=== PATIENT | male | born 1945 | race Caucasian/White ===

== ENCOUNTER 2016-07-17 09:19 | Inpatient (IN) | payer MEDICARE, BC ==
--- NOTE | ~2016-07-17 | CN ---
Consultation Report [facility] [address] [place]. [address] NAME: KELLI MARSHALL : 47 STATUS : ADM IN PAT#: [id number] AGE: 71 ADM/REG DATE : 07/17/16 MR#: [id number] REPORT SERV DATE: 07/18/16 DICTATED BY: DATE: REPORT STATUS : Draft TRANSCRIBED BY: MODL DATE: 07/18/16 NEUROLOGY CONSULTATION DATE OF CONSULTATION: 07/18/2016 REASON FOR CONSULT: Encephalopathy. HISTORY OF PRESENT ILLNESS: This is a 71-year-old male who presented to [facility] secondary to recurrent encephalopathy with the patient's family reports recurrent symptoms over the past [id number] weeks with the patient having had recent multiple hospital admissions in [place] and was diagnosed with stroke by MRI and neurologist. The patient's family reports the patient was noted to have recurrent episodes of encephalopathy, consist of confusion and disorientation as well as difficulty remembering names and phone numbers with episodes lasting several hours to several days. The patient otherwise was not observed to have any jerking episodes or focal weakness. No dysarthria. Also the patient reports chronic dry eyes as well as dry mouth with dry mouth being ongoing for the past two years and dry eyes for the past year. The patient reports secondary to dry mouth, the patient has had difficulty swallowing as well as difficulty talking. In addition family reports, the patient was noted to have slow gait with the patient was noted to have a flexed knee when the patient was ambulating and has sustained 2 falls recently with the patient appeared to have some knee discomfort, pain as well as may be some muscle pain with ambulation. The patient has recently had a trip down to [place] through [place] and has had multiple hospitalizations in [place] for intermittent episodic confusion. The patient and family otherwise denies any changes in medication and no other illness, fever, chills, nausea, vomiting, chest pain, or shortness of breath. PAST MEDICAL HISTORY: The patient's past medical history is significant for COPD with chronic respiratory failure on 3L of oxygen. Significant atrial fibrillation on Eliquis, history of type 2 diabetes as well as hypertension, hyperlipidemia, anxiety disorder, peripheral neuropathy, degenerative joint disease, osteoarthritis, and dry eyes and dry mouth for the past one-to-two years. The patient in addition was recently diagnosed with stroke secondary to recurrent confusion as well as problem talking and disorientation. SOCIAL HISTORY: Denies tobacco, alcohol, or recreational drug usage. The patient quit tobacco smoking in 1988. ALLERGIES: THE PATIENT REPORTS ALLERGY TO CIPROFLOXACIN WELL VENOM. HOME MEDICATIONS: The patient's home medications consist of Xanax p.r.n.; Eliquis; Artificial Tears; aspirin; Lipitor; Symbicort; Bentyl; diltiazem; Neurontin; Lopid; glucosamine; Cozaar; Glucophage; Reglan; Singulair; Centrum; Zantac; Flomax; Spiriva; Xopenex inhaler; Actos; and omega-3. REVIEW OF SYSTEMS: Consultation Report [place] [id number] [place]. [address] NAME: KELLI MARSHALL : 47 STATUS : ADM IN [facility]#: [id number] AGE: 71 ADM/REG DATE : 07/17/16 MR#: [id number] REPORT SERV DATE: 07/18/16 DICTATED BY: DATE: REPORT STATUS : Draft TRANSCRIBED BY: MODL DATE: 07/18/16 Negative except for those mentioned in the HPI. FAMILY HISTORY: Significant for heart disease. PHYSICAL EXAMINATION: VITAL SIGNS: At the time of evaluation, the patient was noted to have overnight vital signs with T-max of 98.8, heart rate of 74 to 103, respirations of 16 to 22, and blood pressure of 109 to 139 over 54 to 77. GENERAL: The patient is well developed, well nourished, in no acute distress. CARDIOVASCULAR: Regular rate and rhythm. No carotid bruits were otherwise auscultated. PULMONARY: Examination was clear to auscultation bilaterally. NEUROLOGICAL: Generally, the patient is alert and oriented to person, place, year, and month. Follows simple and 2-step commands. No aphasia was otherwise appreciated but dysarthria was noted at the time of evaluation. Intact registration but he is only able to recall 1/3 items. The patient was noted to have pupils equal, round, and reactive to light. Extraocular eye movement was noted to be intact with intact peripheral vision. Symmetrical facial expression and sensation. Midline tongue. Normal palatal movement. Normal hearing. The patient was noted to have 5/5 bilateral upper extremity strength with mild postural tremor. No myoclonus or asterixis was otherwise noted. No baseline myoclonus was seen. No jerking episodes were seen. The patient demonstrated 5/5 bilateral lower extremity strength at the time of evaluation. Mild increased rigidity throughout deep tendon reflex was 3+ in bilateral upper extremity 1+ in bilateral patella. Downgoing toe on bilateral plantar reflexes. Normal [id number] examination without ataxia with the patient demonstrates stable station and normal gait. The patient was noted to have symmetrical sensation in bilateral upper extremity; mild decreased sensation in bilateral lower extremity. LABORATORY STUDIES: Demonstrated white blood cell count of 11.2, hemoglobin of 12.7, hematocrit of 38.6, and platelet count of 315. INR of 1.5. Chemistry panel: Procalcitonin of less than 0.05, sodium of 142, potassium 4.4, chloride of 105, bicarb of 28, BUN of 12, creatinine of 0.89, glucose of 233, calcium of 9.1, and magnesium of 1.7. Serum ammonia level was 17. The patient was noted to have folate level of 14.5. Vitamin B12 of 413. TSH of 2.02. Free T4 of 1.14. At the time of evaluation, CT scan of the brain otherwise demonstrated no acute process with the patient noted to have MRI of the brain demonstrating no acute stroke. IMPRESSION: 1. Encephalopathy. The patient was noted to have intermittent confusion with apparent frequent hospitalization and was diagnosed with stroke reportedly by MRI as well as neurologist. The patient, in addition, was also noted to have longstanding dry eyes and dry mouth. We will check sedimentation rate, CRP, VANESSA, SSA SSB antibody as well as rheumatoid factor with morning labs. We will check EEG. May consider lumbar puncture for evaluation. MRI of the brain otherwise demonstrated no acute events. RECOMMENDATIONS: Consultation Report [place] [id number] [facility] [place]. [address] NAME: KELLI MARSHALL : 47 STATUS : ADM IN [facility]#: [id number] AGE: 71 ADM/REG DATE : 07/17/16 MR#: [id number] REPORT SERV DATE: 07/18/16 DICTATED BY: DATE: REPORT STATUS : Draft TRANSCRIBED BY: MODL DATE: 07/18/16 1. Continue Eliquis for now. 2. Sedimentation rate, CRP, VANESSA, SSA-SB antibody, CPK level with morning labs. 3. EEG for evaluation. 4. May consider lumbar puncture. [facility]/MODL Augustin Silva MD / [id number] CC: Alvin Shoemaker M.D.
--- NOTE | ~2016-07-17 | EEG ---
Electroencephalogram [facility] [address] [place]. [address] NAME: KELLI MARSHALL : 47 STATUS : ADM IN PAT#: [id number] AGE: 71 ADM/REG DATE : 07/17/16 MR#: [id number] REPORT SERV DATE: 07/19/16 DICTATED BY: DATE: REPORT STATUS : Draft TRANSCRIBED BY: MODL DATE: 07/19/16 CLINICAL INDICATION: Encephalopathy. DESCRIPTION: This EEG was performed using 10/20 electrode placement system. During the EEG study, symmetric background activity was noted with predominant occipital rhythm of roughly 10 to 11 hertz. Photic stimulation was performed with appropriate driving response. Hyperventilation was not performed secondary to the patient's underlying medical conditions. During the EEG study, patient achieved drowsy state. No focal abnormalities, seizure activity, or seizure discharge was otherwise noted. The patient was noted to have no electrographic seizure during the EEG evaluation. INTERPRETATION: This EEG study obtained during awake and drowsy state may be considered within normal limits. No focal abnormalities, seizure activity, or seizure discharge was otherwise noted. Clinical correlation is recommended. [facility]/MODL Augustin Silva MD / [id number] CC: Neha Saleem M.D.
--- NOTE | ~2016-07-17 | HP ---
History And Physical [place] [address] [place]. [address] NAME: KELLI MARSHALL : [birth year] STATUS : ADM IN [facility]#: [id number] AGE: 71 ADM/REG DATE : 07/17/16 MR#: [id number] REPORT SERV DATE: 07/17/16 DICTATED BY: DEDE BUTLER DATE: 07/17/16 REPORT STATUS : Draft TRANSCRIBED BY: MODFrankie DATE: 07/17/16 DATE OF ADMISSION: 07/17/2016 CHIEF COMPLAINT: Increasing shortness of breath, whitish productive sputum, wheezes for one day, as well as dysarthria and confusion on and off since the last stroke. HISTORY OF PRESENT ILLNESS: This is a very pleasant 71 years old gentleman. He does have an extensive medical history significant for paroxysmal atrial fibrillation. He is a diabetic, severe COPD with chronic respiratory failure on 3 L of oxygen per nasal cannula, history of hypertension, hyperlipidemia, BPH, anxiety disorder, peripheral neuropathy. Recently, he went to [place] in the [facility], where he, according to the patient and , wanted to purchase a house and there he has been admitted x2 at [facility], discharged on and last on for what looks to be two strokes. He received, according to the records, tPA in the emergency room on the second admission, and he has been discharged in home, where he was supposed to come home and get physical therapy as an outpatient. Obviously, the patient since his second stroke, according to the and the patient, remained somewhat dysarthric and confused at times with episodes of confusion on and off. The patient's family brought him and they drove with frequent stops from [place]. They brought the patient and they arrived home at 2 o'clock in the morning. They fell asleep and this morning around 7:30 or 8 o'clock in the morning, the patient's found her that he was laying on his knees on the floor on the side. He did not fall, but according to the patient's , may be he was more dysarthric than usual and he was confused. The patient does not remember the episodes nor does he remember that he came in ambulance, however, according to the patient, his confusion slowly improved while he was in the emergency room, and currently, he is alert and oriented x3, and according to the patient's , dysarthria is at baseline. It is important to note that also for one day he has had some wheezes and whitish productive cough, but no chest pain, no PND or orthopnea. He denies any presyncopal or syncopal episodes. It is important to note that according to the patient's , he has had progressive deterioration of his functional status, and according to the patient and , he has been remaining somewhat unsteady, but no falls since the prior strokes. The patient has been evaluated in the emergency room and the hospitalist service has been asked for admission, further evaluation, and treatment. PAST MEDICAL HISTORY: Significant for atrial fibrillation, COPD with chronic respiratory failure on 3 L of oxygen, recent strokes x2, diabetes type 2, history of paroxysmal atrial fibrillation, hypertension, hyperlipidemia, BPH, also anxiety disorder, peripheral neuropathy, GERD, degenerative joint disease, osteoarthritis. PAST SURGICAL HISTORY: Include bilateral total knee replacement, hernia repair, and left elbow surgery for a burst bursa, left shoulder surgery, and back surgery. SOCIAL HISTORY: The patient denies smoking, he quit in 1988. No alcohol. No IV drugs. ALLERGIES: HE IS ALLERGIC TO CIPRO AND VENOM. MEDICATIONS: At home include Xanax, Eliquis, Artificial Tears, aspirin, Lipitor, Symbicort, History And Physical [address] [address] NAME: KELLI MARSHALL : [birth year] STATUS : ADM IN [facility]#: [id number] AGE: 71 ADM/REG DATE : 07/17/16 MR#: [id number] REPORT SERV DATE: 07/17/16 DICTATED BY: DEDE BUTLER DATE: 07/17/16 REPORT STATUS : Draft TRANSCRIBED BY: MODL DATE: 07/17/16 Bentyl, Cardizem, Neurontin, Lopid, Osteo Bi-Flex, losartan, Glucophage, Reglan, Singulair, multivitamin, Zantac, Flomax, Spiriva, Xopenex, Actos, and omega-3 fatty acid. FAMILY HISTORY: Significant for heart disease and black lung. REVIEW OF SYSTEMS: 14-point review of systems has been obtained and pertinent positives have been listed into the history of present illness. Otherwise, negative except those underlying above. PHYSICAL EXAMINATION: VITAL SIGNS: The patient currently is afebrile. Blood pressure is 125/56, heart rate 76, respiratory rate 22, saturating 96% on oxygen. GENERAL: He is a chronically ill-appearing gentleman, somewhat dysarthric, in no acute distress. Currently, he is alert and oriented x3. He follows all commands appropriately, but he does have some confusion at times. HEENT: Pupils equal, round, reactive to light. Extraocular movements intact. NECK: No JVD. No lymphadenopathy. No thyromegaly appreciated. CHEST: Bilateral air entry. Bilateral wheezes and scattered rhonchi. No crackles. CARDIOVASCULAR: He is irregularly irregular. S1, S2 positive. No S3, no S4. No murmurs, rubs, or gallops appreciated. ABDOMEN: Soft with positive bowel sounds. No tender or guarding or rebound. EXTREMITIES: No clubbing, cyanosis, or edema. NEUROLOGIC: Currently, he is alert and oriented x3. He follows all commands. He has had dysarthria. Cranial nerves are intact. LABORATORY DATA: Labs from today include ABG 7.31, 58, and 64 on 21% FiO2. So labs from today include sodium 144, potassium 3.4, chloride 105, CO2 of 31, BUN 15, creatinine 1.04, glucose is 101. Total bilirubin 0.2, alkaline phosphatase 101, ALT 16, AST 8. His white count is 8.5, hemoglobin 13, hematocrit 39.2, and platelets 309. His UA has been negative. EKG shows atrial fibrillation. His chest x-ray, portable, has shown no acute cardiopulmonary abnormalities. His CT of the brain without contrast showed no acute intracranial abnormality, chronic microvascular white ischemic changes. ASSESSMENT AND PLAN: This is a very pleasant 71 years old gentleman with, 1. Chronic obstructive pulmonary disease exacerbation. 2. Acute on chronic respiratory failure. 3. Dysarthria with intermittent confusion and recent cerebrovascular accident. 4. History of paroxysmal atrial fibrillation, on anticoagulation. 5. Diabetes type 2, noninsulin dependent. 6. Hypertension. 7. History of BPH. 8. History of peripheral neuropathy. 9. Hyperlipidemia. 10.Peripheral neuropathy. PLAN: 1. The patient is going to be admitted to hospitalist service regarding his COPD History And Physical [address] [address] NAME: KELLI MARSHALL : 47 STATUS : ADM IN PAT#: [id number] AGE: 71 ADM/REG DATE : 07/17/16 MR#: [id number] REPORT SERV DATE: 07/17/16 DICTATED BY: DEDE BUTLER DATE: 07/17/16 REPORT STATUS : Draft TRANSCRIBED BY: MODFrankie DATE: 07/17/16 exacerbation. Keep him on oxygen to keep sats 90%-92%. Also IV steroids. We will start him on doxycycline. Aggressive nebulizer treatment. Continue his Symbicort, Mucinex. Check sputum Gram stain and cultures as well, and follow up his chest x-ray. Aggressive pulmonary toilet as well. 2. Dysarthria with intermittent confusion and severe weakness since prior CVA. We are going to continue his aspirin and Eliquis, order an MRI of the brain, and consult Neurology, Dr. Silva, per patient and family request. We will request all the medical records from the [facility] recent hospitalization. Get a PT/OT eval and treat as well. Probably, the patient will need inpatient rehab at discharge. 3. History of paroxysmal atrial fibrillation. We are going to continue his Cardizem, continue his Eliquis. Check cardiac enzymes as well as 2D echo. 4. Diabetes type 2, noninsulin dependent. We will hold his Glucophage. Accu-Cheks before meals and at bedtime, sliding scale insulin subcutaneously level 2. 5. Hyperlipidemia. We will continue his lipid-lowering agent. 6. Peripheral neuropathy. Continue Neurontin and hold for sedation. 7. Anxiety disorder, p.r.n. Xanax that patient has been on. 8. Provide reasonable pain, nausea control. Replace all his electrolytes as well as GI and DVT prophylaxis with SCDs since the patient is currently on Eliquis as well. Further workup and recommendation pending above. That has been discussed extensively with the patient as well as the patient's . All the questions have been answered in full. It is worthwhile to note that the patient is going to be followed by Dr. Alvin Shoemaker. CF/TOMASL Dede Butler M.D. / [id number]
--- NOTE | ~2016-07-17 | DS ---
Discharge Summary [facility] [address] [place]. [address] NAME: KELLI MARSHALL : 47 STATUS : DIS IN PAT#: [id number] AGE: 71 ADM/REG DATE : 07/17/16 MR#: [id number] REPORT SERV DATE: 07/20/16 DICTATED BY: XENA SHOEMAKER DATE: 07/19/16 REPORT STATUS : Draft TRANSCRIBED BY: MODL DATE: 07/19/16 ADMISSION DATE: 07/17/2016 DISCHARGE DATE: 07/19/2016 CONSULTANTS: Dr. Silva, Neurology. DISCHARGE DIAGNOSES: 1. Multiple episodes of encephalopathy, unclear etiology (see discussion below). 2. Paroxysmal atrial fibrillation, on anticoagulation with Eliquis. 3. Diabetes mellitus type 2 with peripheral neuropathy and A1c of 6.8%. 4. Chronic obstructive pulmonary disease on home oxygen 3 L chronically. 5. Possible obstructive sleep apnea. 6. Hypertension. 7. Benign prostatic hypertrophy by history. 8. History of anxiety. 9. Chronic complaint of dry mouth in a gentleman who is taking Bentyl t.i.d. chronically. HISTORY: This gentleman and his state that they were in the [facility] recently and he was taken to the emergency room twice and admitted. When I asked the why he was taken to the hospital the first time, she states it was because "he had weak eyes and garbled speech, and did not make sense." He was there for a few days. She believes he was diagnosed with a stroke and was released. She took him back a subsequent time for admission and I asked her why, she stated he was "confused and rambling." Her understanding is he was diagnosed with a stroke again. She thinks he might have been given tPA during one of these times, but she is not certain. She states he was at [facility]. We requested records but have not received them. brought him in here to our emergency room and when I asked her why, she stated that they had left from the [place], [place] area on Tuesday day, drove all the way home, lot of traffic through [place], got home about 0200 hours on 07/17/2016. She says they went to bed. She got up around 0630 hours. She found him sitting on the floor and again, he seemed confused, had some garbled speech. He could not seem to understand what she was telling him. She could not understand what he was telling her. She brought him to the emergency room, and he was referred to our team for inpatient care. Imaging included CT scan of the brain without contrast that showed chronic microvascular ischemic changes and atherosclerotic changes but no acute abnormalities. MRI of the brain revealed no evidence of acute abnormality. There was no evidence of recent stroke. There was some atrophy and chronic white matter changes. Chest x-ray unremarkable. Echocardiogram with ejection fraction 60%. Left atrium enlarged at 4.3 cm. The patient's arterial blood gas on room air, pH 7.31, pCO2 of 58, PO2 of 64, bicarbonate 28.2, but he and state he normally wears 3 L oxygen. When he is on 3 liters, his O2 sats have been 92- 98% consistently. His chemistries revealed no significant abnormality other than his blood sugar ranging anywhere from 101-233 on the vena puncture testing. His albumin slightly low at 3.1 but otherwise his liver enzymes were unremarkable. His troponins were normal. TSH normal. Urine drug screen negative. C-reactive protein 6.7, ESR 36. Rheumatoid factor Discharge Summary [address] [address] NAME: KELLI MARSHALL : 47 STATUS : DIS IN PAT#: [id number] AGE: 71 ADM/REG DATE : 07/17/16 MR#: [id number] REPORT SERV DATE: 07/20/16 DICTATED BY: XENA SHOEMAKER DATE: 07/19/16 REPORT STATUS : Draft TRANSCRIBED BY: JUAN DATE: 07/19/16 less than 10. Ammonia level 17. White count was initially 8.5. The followup day it was 11.2. He was afebrile and the ER had given him Solu-Medrol so that probably accounts for the bump in the white count. Hemoglobin ranged between 12.7 and 13. Platelets were normal. He is on Eliquis. Urinalysis unremarkable. The patient when I met him on 07/18/2016 was oriented. He was very talkative. He seemed to be very focused on his chronic dry mouth and attributing all of his other problems to the chronic dry mouth and review of his medicines. It looks like he was taking Bentyl 20 mg t.i.d. routinely which could certainly cause dry mouth. So, I stopped this. His dry mouth seems to be better in the short term. Neurology saw him. They did recommend a lumbar puncture which would require him to be off Eliquis. He does not want to stay and do that in the hospital. He wants to follow up with Neurology as an outpatient to do this. We did order an HIV as part of the dementia and encephalopathy screening. It was nonreactive. RPR has been ordered and is pending at this time. EEG was done. It was normal. He is alert. He is oriented. He has no focal neurologic deficits. He has had no speech problems during the time that he has been here. He has had no confusion during this time here. We are not certain as to the cause of his intermittent encephalopathies. It is possible that he has some underlying dementia that is having some deterioration at times. His PCP will follow this up longitudinally and we have also asked him to see [facility] in the followup. DISCHARGE MEDICATIONS: Eliquis 5 mg b.i.d., aspirin 81 mg daily, Lipitor 40 mg at bedtime, Tiazac extended release 360 mg daily, gabapentin 600 mg t.i.d., Lopid 600 mg b.i.d., Cozaar 50 mg daily, Reglan which he reportedly takes before every meal at bedtime but it is not exactly clear why, Singulair 10 mg daily, Flomax 0.4 mg daily, Symbicort 80/4.5 two puffs twice a day. Xanax he reportedly was taking 1 mg twice a day plus p.r.n. doses. We recommended that the supervise that and that he only have it twice a day p.r.n. Artificial Tears p.r.n. Spiriva one capsule inhaled daily. We stopped his Bentyl for the above described reason. Metformin 500 mg b.i.d. (A1c 6.8%). Osteo Bi-Flex caplet twice a day. Xopenex. He uses p.r.n. and he thinks he might be on Actos, but he is not sure. So PCP to follow that up. He takes a Centrum vitamin, omega-3, and some Zantac 150 mg p.o. b.i.d. I spent 42 minutes today with the patient and with his and with discharge planning. EULALIA/JUAN Xena Shoemaker M.D. / [id number] Discharge Summary [address] [address] NAME: KELLI MARSHALL ALEXANDRU : 47 STATUS : DIS IN PAT#: [id number] AGE: 71 ADM/REG DATE : 07/17/16 MR#: [id number] REPORT SERV DATE: 07/20/16 DICTATED BY: XENA SHOEMAKER DATE: 07/19/16 REPORT STATUS : Draft TRANSCRIBED BY: JUAN DATE: 07/19/16 CC: Neha Saleem M.D. Gordon Graham, M.D. Pamela Sud, M.D.
[~2016-07-17 09:19] MED LIST: ACTOS15 PO; ACTOS45 PO; ALBUTEROL PO; AMARYL4 PO; ASAB PO; C5 PO; CARDCD240 PO; CEFT5 PO; COZ25 PO; COZ50 PO; FESO4 PO; FLOMAX4 PO; GLUCCHONDR PO; GLUCPH PO; HALF81 PO; LOPID6 PO; MULTIPLE VIT PO; NEUR300 PO; NEUR600 PO; OSTEO BIFLEX PO; PCET PO; REG PO; SPIRIVA INH; SYMBICORT 160/41 INH INH; T PO; XANAX1 MG PO; XANAX2 MG PO; XOPENEX HFA INH; ZANTAC 150 PO; ZOCOR20 PO; ZOCOR40 PO
[2016-07-17 10:17] LABS: BE (BASE EXCESS) 0.7 MEQ/L (0 +/- 2.5); CARBOXYHEMOGLOBIN 1.4 % (0-3); HCO3 (ACTUAL BICARBONATE) 28.2 MEQ/L (23-27); HEMOBLOGIN CONTENT 13.5 G/DL (14-18); INSTRUMENT SERIAL # 8087; METHEMOGLOBIN 0.3 % (0-3); O2 CONTENT 16.7 VOL% (18-24); PCO2 (CO2 TENSION) 58 MMHG (35-45); PO2 (O2 TENSION) 64 MMHG (79-93); SAMPLE Arterial; pH 7.31 (7.37-7.43)
[2016-07-17 10:18] LABS: ALLENS TEST Pos
[2016-07-17 10:22] LABS: BASOPHILS 0.4 %; BASOPHILS ABSOLUTE 0.03 10/3/uL (0.0-0.16); EOSINOPHILS 5.3 %; EOSINOPHILS ABSOLUTE 0.45 10/3/uL (0.0-0.53); ER CBC TAT 0 Hrs 05 Mins; IMMATURE GRANULOCYTES 0.2 %; IMMATURE GRANULOCYTES ABSOLUTE 0.02 10/3/uL (0.0-0.11); LYMPHOCYTES 18.5 %; LYMPHOCYTES ABSOLUTE 1.57 10/3/uL (0.67-4.30); MEAN CORPUS HGB CONC 33.2 g/dL (32.0-36.0); MEAN CORPUSCULAR HEMOGLOB 30.4 pg (26.0-34.0); MEAN CORPUSCULAR VOLUME 91.6 fL (80-100); MEAN PLATELET VOLUME 8.6 fL (9.2-13.0); MONOCYTES 11.6 %; MONOCYTES ABSOLUTE 0.99 10/3/uL (0.21-1.20); NEUTROPHILS ABSOLUTE 5.44 10/3/uL (2.02-8.40); PLATELET COUNT 309 10/3/uL (150-400); RBC DISTRIBUTION WIDTH 12.7 % (12.0-16.0); RED CELL COUNT 4.28 10/6/uL (4.7-6.1); WHITE BLOOD CELLS 8.5 10/3/uL (4.5-10.5)
[2016-07-17 10:23] LABS: HEMATOCRIT 39.2 % (40.0-51.0); MANUAL DIFF NO %
[2016-07-17 10:39] LABS: A/G RATIO 0.8 (0.7-1.9); ALBUMIN 3.3 G/DL (3.5-5.0); ALKALINE PHOSPHATASE 101 U/L (45-117); BUN (BLOOD UREA NITROGEN) 15 MG/DL (6-23); CHLORIDE, SERUM 105 MMOL/L (96-112); CO2 (CARBON DIOXIDE) 31 MMOL/L (24-34); CREATININE 1.04 MG/DL (0.70-1.30); GFR AFRICAN AMERICAN 84 ML/MIN (>=60); GFR NON AFRICAN AMERICAN 72 ML/MIN (>=60); GLOBULIN 4.1 G/DL (2.5-4.1); GLUCOSE, SERUM 101 MG/DL (60-99); POTASSIUM, SERUM 3.4 MMOL/L (3.5-5.3); SGOT(AST) 8 U/L (5-40); SGPT(ALT) 16 U/L (5-65); SODIUM, SERUM 144 MMOL/L (135-148); TOTAL BILIRUBIN 0.2 MG/DL (0-1.2); TOTAL PROTEIN 7.4 G/DL (6.0-8.5)
[2016-07-17 13:41] LABS: ASCORBIC ACID (UR NOT ORDER) NEG (NEG); BILIRUBIN, URINE NEGATIVE (NEG); ER URINALYSIS TAT 0 Hrs 20 Mins; KETONE, URINE NEGATIVE (NEG); LEUKOCYTE ESTERASE(NOT OR NEG (NEG); NITRITE (URINE) NEG (NEG); WBC (NOT ORDERED) (RFLEX) 1 (0-5)
[2016-07-17] MEDS ORDERED: ELIQUIS 5 MG TAB5 MG PO (15:05)
[2016-07-17] MEDS ORDERED: GLUCPH PO (15:06)
[2016-07-17] MEDS ORDERED: XANAX1 MG PO ×2 (15:07→15:08)
[2016-07-17] MEDS ORDERED: ASAB PO (15:08)
[2016-07-17] MEDS ORDERED: LIPITOR40 PO (15:09)
[2016-07-17] MEDS ORDERED: SYMBICORT 80/4.1 INH INH (15:09)
[2016-07-17] MEDS ORDERED: SPIRIVA INH (15:10)
[2016-07-17] MEDS ORDERED: BENTYL20 PO (15:10)
[2016-07-17] MEDS ORDERED: NEUR600 PO (15:11)
[2016-07-17] MEDS ORDERED: LOPID6 PO (15:11)
[2016-07-17] MEDS ORDERED: TAZTIA X3 PO (15:11)
[2016-07-17] MEDS ORDERED: OSTEO BI-FLEX1 EACH PO (15:12)
[2016-07-17] MEDS ORDERED: XOPENEX PO (15:13)
[2016-07-17] MEDS ORDERED: COZ50 PO (15:15)
[2016-07-17] MEDS ORDERED: SINGULAIR1 PO (15:16)
[2016-07-17] MEDS ORDERED: REG PO (15:16)
[2016-07-17] MEDS ORDERED: ACTOS (15:18)
[2016-07-17] MEDS ORDERED: FLOMAX4 PO (15:19)
[2016-07-17] MEDS ORDERED: CENTRUM PO (15:21)
[2016-07-17] MEDS ORDERED: OMEGA-3 PO (15:22)
[2016-07-17] MEDS ORDERED: ZANTAC150 MG PO (15:22)
[2016-07-17] MEDS ORDERED: HYPOTEARS OPH (15:24)
[2016-07-17 20:16] LABS: INTERNATIONAL NORMAL RATI 1.3 UNITS (-); PARTIAL THROMBO TIME 30.7 SEC (22.5-37.2); PROTIME (NOT ORD) 16.2 SEC (12.0-14.5)
[2016-07-17 20:47] LABS: FERRITIN 141 NG/ML (26-388); FREE T4 1.14 NG/DL (0.76-1.46); IRON BINDING CAPACITY 308 MCG/DL (250-450); IRON, SERUM 48 MCG/DL (35-150); PHOSPHORUS, SERUM 2.5 MG/DL (2.5-4.5); TROPONIN I <0.02 NG/ML (<0.05)
[2016-07-17 20:50] LABS: FOLATE 14.5 NG/ML (>5.2); PROCALCITONIN <0.05 ng/mL (<0.5)
[2016-07-17 20:51] LABS: ACETAMINOPHEN LEVEL (TYLENOL) < 2.0 MCG/ML (10.0-20.0); ALCOHOL < 10 MG/DL (0); SALICYLATE < 1.7 MG/DL (-)
[2016-07-18 03:53] LABS: BASOPHILS 0.2 %; BASOPHILS ABSOLUTE 0.02 10/3/uL (0.0-0.16); EOSINOPHILS 0.4 %; EOSINOPHILS ABSOLUTE 0.05 10/3/uL (0.0-0.53); HEMATOCRIT 38.6 % (40.0-51.0); HEMOGLOBIN 12.7 g/dL (13.6-17.8); IMMATURE GRANULOCYTES 0.4 %; IMMATURE GRANULOCYTES ABSOLUTE 0.04 10/3/uL (0.0-0.11); LYMPHOCYTES ABSOLUTE 0.45 10/3/uL (0.67-4.30); MEAN CORPUS HGB CONC 32.9 g/dL (32.0-36.0); MEAN CORPUSCULAR HEMOGLOB 29.9 pg (26.0-34.0); MEAN CORPUSCULAR VOLUME 90.8 fL (80-100); MEAN PLATELET VOLUME 8.7 fL (9.2-13.0); MONOCYTES ABSOLUTE 0.11 10/3/uL (0.21-1.20); NEUTROPHILS ABSOLUTE 10.53 10/3/uL (2.02-8.40); PLATELET COUNT 315 10/3/uL (150-400); RBC DISTRIBUTION WIDTH 12.4 % (12.0-16.0); RED CELL COUNT 4.25 10/6/uL (4.7-6.1); WHITE BLOOD CELLS 11.2 10/3/uL (4.5-10.5)
[2016-07-18 03:54] LABS: MANUAL DIFF NO %
[2016-07-18 04:03] LABS: INTERNATIONAL NORMAL RATI 1.5 UNITS (-); PROTIME (NOT ORD) 17.6 SEC (12.0-14.5)
[2016-07-18 04:08] LABS: A/G RATIO 0.8 (0.7-1.9); ALBUMIN 3.1 G/DL (3.5-5.0); ALKALINE PHOSPHATASE 95 U/L (45-117); BUN (BLOOD UREA NITROGEN) 12 MG/DL (6-23); CALCIUM, SERUM 9.1 MG/DL (8.5-10.4); CHLORIDE, SERUM 105 MMOL/L (96-112); CO2 (CARBON DIOXIDE) 28 MMOL/L (24-34); CREATININE 0.89 MG/DL (0.70-1.30); GFR AFRICAN AMERICAN 100 ML/MIN (>=60); GFR NON AFRICAN AMERICAN 87 ML/MIN (>=60); GLOBULIN 3.9 G/DL (2.5-4.1); SGOT(AST) 8 U/L (5-40); SGPT(ALT) 17 U/L (5-65); SODIUM, SERUM 142 MMOL/L (135-148); TOTAL BILIRUBIN 0.3 MG/DL (0-1.2); TROPONIN I <0.02 NG/ML (<0.05)
[2016-07-18 04:11] LABS: GLUCOSE, SERUM 233 MG/DL (60-99); POTASSIUM, SERUM 4.4 MMOL/L (3.5-5.3)
[2016-07-18 07:40] LABS: GLYCOHEMOGLOBIN (HbA1c) 6.8 % (4.7-6.1)
[2016-07-19 06:13] LABS: C-REACTIVE PROTEIN 6.7 MG/L (<8.0)
[2016-07-19 06:14] LABS: CPK 70 U/L (0-200); RHEUMATOID FACTOR QUANT < 10 IU/ML (0-15)
[2016-07-19 11:35] LABS: ANA TITER <1:40 TITER
[2016-07-19] MEDS ORDERED: T PO (18:30)
[2016-07-20 12:02] LABS: ANTI SS-A NEGATIVE (NEGATIVE); ANTI SS-B NEGATIVE (NEGATIVE)
== END 2016-07-19 22:07 | disposition home or self-care (01) | DRG 71 ==
LOC: ER 09:19 → 2SO 16:29
PROVIDERS: Emergency Medicine; Internal Medicine; Psychiatry & Neurology Neurology
DX: G93.40 Encephalopathy, unspecified (principal); J96.10 Chronic respiratory failure, unspecified whether with hypoxia or hypercapnia; E11.42 Type 2 diabetes mellitus with diabetic polyneuropathy; Z99.81 Dependence on supplemental oxygen; I48.0 Paroxysmal atrial fibrillation; I10 Essential (primary) hypertension; E78.5 Hyperlipidemia, unspecified; N40.0 Benign prostatic hyperplasia without lower urinary tract symptoms; J44.9 Chronic obstructive pulmonary disease, unspecified; G47.33 Obstructive sleep apnea (adult) (pediatric); F41.9 Anxiety disorder, unspecified; I69.322 Dysarthria following cerebral infarction; K21.9 Gastro-esophageal reflux disease without esophagitis; M19.90 Unspecified osteoarthritis, unspecified site; Z88.1 Allergy status to other antibiotic agents; Z88.8 Allergy status to other drugs, medicaments and biological substances; Z82.49 Family history of ischemic heart disease and other diseases of the circulatory system; Z96.653 Presence of artificial knee joint, bilateral; Z87.891 Personal history of nicotine dependence; Z79.82 Long term (current) use of aspirin; Z79.01 Long term (current) use of anticoagulants
CPT/HCPCS: 70450; 70551; 71010; 80053; 80307; 81001; 82140; 82550; 82607; 82728; 82746; 82805; 82962; 83036; 83540; 83550; 83605; 83615; 83735; 84100; 84145; 84439; 84443; 84484; 85025; 85610; 85652; 85730; 86039; 86140; 86235; 86235-59; 86431; 86592; 87040; 87070; 87205; 87389; 87449; 93005; 94640; 95816; 96374; 97116-GP; 97161-GP; 97165-GO; 99285; A9270-GY; C8929; G8978-CK-GP; G8979-CI-GP; G8987-CJ-GO; G8988-CJ-GO; G8989-CJ-GO; J2930; Q9957

== ENCOUNTER 2016-07-24 22:55 | Emergency (ER) | payer MEDICARE, BC ==
[~2016-07-24 22:55] MED LIST changes: +ACTOS; +BENTYL20 PO; +CENTRUM PO; +ELIQUIS 5 MG TAB5 MG PO; +HYPOTEARS OPH; +LIPITOR40 PO; +OMEGA-3 PO; +OSTEO BI-FLEX1 EACH PO; +SINGULAIR1 PO; +SYMBICORT 80/4.1 INH INH; +TAZTIA X3 PO; +XOPENEX PO; +ZANTAC150 MG PO
[2016-07-25 00:11] LABS: ASCORBIC ACID (UR NOT ORDER) NEG (NEG); BILIRUBIN, URINE NEGATIVE (NEG); ER URINALYSIS TAT 0 Hrs 00 Mins; KETONE, URINE 20 MG/DL (NEG); LEUKOCYTE ESTERASE(NOT OR TRACE (NEG); NITRITE (URINE) NEG (NEG); WBC (NOT ORDERED) (RFLEX) 5 (0-5)
== END 2016-07-25 02:10 | disposition left against medical advice (07) ==
LOC: ER 22:55
PROVIDERS: Emergency Medicine
DX: Z53.21 Procedure and treatment not carried out due to patient leaving prior to being seen by health care provider (principal)
CPT/HCPCS: 81001